=== PATIENT | female | born 1960 | race American Indian/Alaskan Native ===

== ENCOUNTER 2018-10-16 10:20 | Emergency (ER) | payer OTHER ==
[2018-10-16 10:50] LABS: Basophils # (Auto) 0.1 K/mm3 (0.0-0.1); Basophils % (Auto) 1.6 % (0.0-1.8); Eosinophils # (Auto) 0.1 K/mm3 (0.0-0.4); Eosinophils % (Auto) 1.8 % (0.0-4.3); Hematocrit 40.2 % (30.3-42.9); Hemoglobin 13.8 gm/dl (10.1-14.3); Lymphocytes # (Auto) 3.1 K/mm3 (1.2-5.4); Lymphocytes % (Auto) 39.9 % (13.4-35.0); Mean Corpuscular HGB Conc 34 % (30-34); Mean Corpuscular Volume 92 fl (79-97); Monocytes # (Auto) 0.6 K/mm3 (0.0-0.8); Monocytes % (Auto) 8.4 % (0.0-7.3); Platelet Count 268 K/mm3 (140-440); Red Blood Count 4.36 M/mm3 (3.65-5.03); Red Cell Distribution Width 13.9 % (13.2-15.2)
[2018-10-16 11:11] LABS: Calcium 9.6 mg/dL (8.4-10.2)
[2018-10-16 13:25] LABS: Amphetamine Screen,Urine PRESUMPTIVE NEGATIVE; Benzodiazepines Screen,Urine PRESUMPTIVE NEGATIVE; Cannabinoid Screen,Urine PRESUMPTIVE NEGATIVE; Cocaine Screen,Urine PRESUMPTIVE NEGATIVE; Methadone Screen,Urine PRESUMPTIVE NEGATIVE; Opiate Screen,Urine PRESUMPTIVE NEGATIVE
[2018-10-16 13:26] LABS: Bacteria,Urine 1+ /HPF (Negative); Mucus,Urine FEW /HPF
[2018-10-16 13:27] LABS: Bilirubin,Urine NEG (Negative); Blood,Urine NEG (Negative); Color,Urine Yellow (Yellow); Protein,Urine <15 mg/dL mg/dL (Negative)
--- NOTE | 2018-10-16 14:50 | Emergency Department Report ---
ED Psych HPI - General Chief Complaint: Psych Stated Complaint: SI/CHEST PAIN/DEPRESSION/ANXIETY Time Seen by Provider: 10/16/18 14:15 Source: patient Mode of arrival: Ambulatory - History of Present Illness Initial Comments: 58-year-old female with history of anxiety, depression, schizophrenia presents to ED with complaint of anxiety, depression, suicidal ideation. Patient stated to the upper medications. Reports plans to jump out of a window or in front of a car. Denies hallucinations. MD Complaint: suicidal ideation -: unknown Associated Psychiatric Symptoms: depression, suicidal ideation History of same: Yes Quality: constant Improves With: none Worsens With: none Context: not taking psychiatric Associated Symptoms: other (body aches) Treatments Prior to Arrival: none If Self Harm: has plan - Related Data Home Medications Medication Instructions Recorded Confirmed Last Taken FLUoxetine [PROzac] 40 mg PO QDAY 10/16/18 10/17/18 08/24/18 QUEtiapine [SEROquel] 300 mg PO BID 10/16/18 10/17/18 09/21/18 levETIRAcetam [Keppra] 1,000 mg PO BID 10/16/18 10/17/18 08/16/18 Allergies Allergy/AdvReac Type Severity Reaction Status Date / Time No Known Allergies Allergy Unverified 10/16/18 10:25 ED Review of Systems ROS: Stated complaint: SI/CHEST PAIN/DEPRESSION/ANXIETY Other details as noted in HPI Comment: All other systems reviewed and negative Constitutional: denies: chills, fever Musculoskeletal: myalgia Psychiatric: depression, suicidal thoughts ED Past Medical Hx - Past Medical History Previous Medical History?: Yes Hx Psychiatric Treatment: Yes - Surgical History Past Surgical History?: Yes Additional Surgical History: Tubal ligation - Social History Smoking Status: Never Smoker Substance Use Type: None - Medications Home Medications: Home Medications Medication Instructions Recorded Confirmed Last Taken Type FLUoxetine [PROzac] 40 mg PO QDAY 10/16/18 10/17/18 08/24/18 History QUEtiapine [SEROquel] 300 mg PO BID 10/16/18 10/17/18 09/21/18 History levETIRAcetam [Keppra] 1,000 mg PO BID 10/16/18 10/17/18 08/16/18 History ED Physical Exam - General Limitations: No Limitations General appearance: alert, in no apparent distress - Head Head exam: Present: atraumatic, normocephalic - Eye Eye exam: Present: normal appearance - ENT ENT exam: Present: mucous membranes moist - Neck Neck exam: Present: normal inspection - Respiratory Respiratory exam: Present: normal lung sounds bilaterally. Absent: respiratory distress - Cardiovascular Cardiovascular Exam: Present: regular rate, normal rhythm - GI/Abdominal GI/Abdominal exam: Absent: distended - Extremities Exam Extremities exam: Present: normal inspection - Neurological Exam Neurological exam: Present: alert, oriented X3 - Psychiatric Psychiatric exam: Present: normal affect, normal mood - Skin Skin exam: Present: warm, dry, intact, normal color ED Course Vital Signs 10/16/18 10/16/18 10/16/18 10:25 16:24 20:55 Temperature 98.5 F 98.0 F 98.5 F Pulse Rate 90 82 81 Respiratory 19 18 18 Rate Blood Pressure 141/74 130/51 135/87 [Left] O2 Sat by Pulse 97 100 96 Oximetry 10/16/18 10/17/18 10/17/18 22:00 04:30 07:00 Temperature 98.4 F 98.6 F Pulse Rate 78 80 Respiratory 16 17 18 Rate Blood Pressure 103/79 144/87 [Left] O2 Sat by Pulse 99 100 96 Oximetry ED Medical Decision Making - Lab Data Result diagrams: 10/16/18 10:34 10/16/18 10:34 - Medical Decision Making 58-year-old female presents to ED with suicidal ideations. Patient placed on 1013. Labs are unremarkable. Patient is medically clear for mental health evaluation. Will dispo per psych - Differential Diagnosis anxiety, depression, SI Critical care attestation.: If time is entered above; I have spent that time in minutes in the direct care of this critically ill patient, excluding procedure time. ED Disposition Clinical Impression: Depression, Suicidal ideation Disposition: [id number]/[facility]-65 PSY HOSP/PSY UNIT Is pt being admited?: No Condition: Stable Referrals: KEIRY JUARES MD [Primary Care Provider] - 3-5 Days
[2018-10-16] MEDS ORDERED: HALDOL IM ONE (22:07)
[2018-10-17] MEDS ORDERED: GEODON IM ONE ×2 (02:49→09:14)
[2018-10-17] MEDS ORDERED: WATER FOR INJ Sterile (PF) 10 ML ONE ×2 (02:49→02:50)
[2018-10-17] MEDS ORDERED: GEODON IM PRN (02:51)
[2018-10-17] MEDS: KEPPRA PO SCH ×2 (10:53→22:13)
--- NOTE | 2018-10-17 14:49 | Consultation ---
History of Present Illness - Reason for Consult Consult date: 10/17/18 Reason for consult: Initial Psychiatric Evaluation - Chief Complaint Chief complaint: " I have schizophrenia and bipolar. I need my medication." - History of Present Psychiatric Illness Patient is a 58-year-old female that presents to the emergency room with suicidal ideations, depression, psychosis, and anxiety. She has a PPHx of generalized anxiety disorder, major depressive disorder, and schizoaffective disorder, bipolar type. Today the patient is calm and cooperative during the assessment. Patient verbalizes that she is here from [place]. She came to [place] on a bus to find her daughter approximately 1 month ago. She reports paranoid delusions and auditory hallucinations " I want to . I don't want to live." Patient thought content is impoverished. Answers to questions are conflicting. She states that she was last compliant with medication 3 days ago. Endorses suicidal ideation and psychosis. Current Psychiatric Medications: Seroquel 300mg po BID, Prozac 40mg po QAM, and Klonopin 1mg po BID Past Psychiatric History: schizoaffective disorder, bipolar type (2005) MDD ( 2005) MALINDA ( 2005); more than 10 inpatient psychiatric hospitalizations; no outpatient psychiatrist; 3 previous suicide attempt via overdose. Last attempt 3 months ago. Past Medication Trials: " I've only taken these medications" History of Trauma/Abuse: Patient denies trauma. Patient denies sexual, physical, and mental abuse. History of Drug/Alcohol Abuse: Patient denies. UDS negative. Social History: 9th grade - highest level of education ;homeless; Social Security- $ 740 monthly income; limited support system; no pending legal issues. Family History of Psychiatric Illness/Substance Abuse: Mother- " the same thing as me" son- " the same thing as me" Medications and Allergies Allergies Allergy/AdvReac Type Severity Reaction Status Date / Time No Known Allergies Allergy Unverified 10/16/18 10:25 Home Medications Medication Instructions Recorded Confirmed Last Taken Type FLUoxetine [PROzac] 40 mg PO QDAY 10/16/18 10/17/18 08/24/18 History QUEtiapine [SEROquel] 300 mg PO BID 10/16/18 10/17/18 09/21/18 History levETIRAcetam [Keppra] 1,000 mg PO BID 08/10/17/18 08/16/18 History clonazePAM [Klonopin] 1 mg PO BID 10/17/18 10/17/18 Unknown History Active Meds: Active Medications Levetiracetam (Keppra) 1,000 mg PO BID ENRIQUE Last Admin: 10/17/18 10:53 Dose: 1,000 mg Documented by: Mental Status Exam - Vital signs Last Vital Signs Temp 98.6 F 10/17/18 07:00 Pulse 80 10/17/18 07:00 Resp 18 10/17/18 07:00 BP 144/87 10/17/18 07:00 Pulse Ox 96 10/17/18 07:00 - Exam Narrative exam: Mental Status Exam Appearance: calm, cooperative Behavior: regular eye contact Speech: regular rate and tone Mood: "depressed and anxious " Affect: congruent to mood Thought Process: circumstantial Thought Content: + SI's and AH's, delusions; denies VH's and HI's Motor Activity: ambulatory Cognition: A/O x 2 Insight: poor Judgment: poor Results Result Diagrams: 10/16/18 10:34 10/16/18 10:34 All other labs normal. Assessment and Plan Assessment and plan: Impression: PPHX MDD, recurrent, severe and schizoaffective disorder, bipolar type . Today the patient is calm and cooperative during the assessment. She endorses SI's, AH's, and delusions. UDS negative. Recommendations/Plan: 1. Continue 1013. 2. Start Prozac 20mg po QAM depression/anxiety, Seroquel 100mg po BID mood/psychosis, Vistaril 25mg po BID PRN anxiety. Discussed possible side effects such as metabolic side effects due to Seroquel, possible increase suicidal ideations in reference to Prozac, and anticholinergic side effects of Vistaril. 3. Will attempt to gain collateral and reassess in 24 hours. 4. Recommend [facility] protocol for possible benzodiazepine withdrawal. Disposition: The patient was referred to inpatient psychiatric services. Will staff with Dr. Sam Calderon.
[2018-10-17] MEDS ORDERED: VISTARIL PO PRN (15:24)
[2018-10-17] MEDS: VISTARIL PO SCH (22:14)
[2018-10-18] MEDS: KEPPRA PO SCH ×2 (10:37→22:34)
[2018-10-18] MEDS: PROzac PO SCH (10:37)
[2018-10-18] MEDS: VISTARIL PO SCH ×2 (10:38→22:34)
--- NOTE | 2018-10-18 12:22 | Progress Note ---
Subjective - Reason for Consult Consult date: 10/18/18 Reason for consult: Psychiatry Follow-up - Chief Complaint Chief complaint: "I am feeling bad" 58-year-old female who presented to for mental health evaluation. Per the notes, the patient endorsed SI's along with presenting with psychosis. Today the patient was cooperative, but somewhat disorganized during the assessment. Her answers to some questions were not logical. She was asked about her mental health, she answer the question reference her abdomen. She was adamant about telling me the provider about her medication without me asking question about them. She denies SI/HI's and VH's. She would not confirm or deny AH's. No indications of side effects from her medications. Mental Status Exam - Vital signs Last Vital Signs Temp 98 F 10/18/18 09:44 Pulse 83 10/18/18 09:44 Resp 18 10/18/18 09:44 BP 168/87 10/18/18 09:44 Pulse Ox 96 10/18/18 09:44 - Exam Narrative exam: MSE: Appearance: cooperative Behavior: regular eye contact Speech: regular rate and tone Mood: "not good" Affect: flat Thought Process: somewhat disorganized Thought Content: denies SI/HI's and VH's Motor Activity: sitting up in bed Cognition: A/O x 3 Insight: poor Judgment: variable Assessment and Plan Impression: Unspecified Mood DO with psy features. Today the patient was cooperative, but somewhat disorganized during the assessment. DDx: MDD with psychosis, SCAD, Bipolar DO Recommendations/Plan: Continue 1013, Seroquel 100 mg PO BID for mood/psychosis, Prozac 20 mg PO daily for depression, and Vistaril 25 mg PO BID for anxiety. Discussed possible metabolic side effects of Seroquel with the patient, she verbalized understanding. Discussed possible sucidality/medication induced leah with the patient reference Prozac, she verbalized understanding. Dispo: The patient was accepted at [facility] for inpatient psy services. Staffed with Dr. Sam Calderon.
[2018-10-18] MEDS ORDERED: IBUPROFEN PO ONE (23:29)
[2018-10-18] MEDS ORDERED: HABITROL TD ONE (23:29)
[2018-10-19 06:15] LABS: Chol/HDL Ratio 3.54 %
[2018-10-19 08:01] VITALS: BP 125/82
[2018-10-19] MEDS ORDERED: TYLENOL ONE (08:22)
[2018-10-19] MEDS ORDERED: TYLENOL PO ONE (08:32)
[2018-10-19] MEDS ORDERED: IBUPROFEN PO ONE (08:33)
--- NOTE | 2018-10-19 09:56 | Progress Note ---
Subjective - Reason for Consult Consult date: 10/19/18 Reason for consult: Psychiatry Follow-up - Chief Complaint Chief complaint: " am much better today" 58-year-old female who presented to for mental health evaluation. Per the notes, the patient endorsed SI's along with presenting with psychosis. Today the patient was calm and cooperative during the assessment. She was more organized with her thoughts today. She answered questions logically. She stated that she will follow up with outpatient psy services. She denies SI/HI's and AVH's. She denies any side effects from her medications. Mental Status Exam - Vital signs Last Vital Signs Temp 98.1 F 10/19/18 07:42 Pulse 77 10/19/18 07:42 Resp 16 10/19/18 08:36 BP 125/82 10/19/18 07:42 Pulse Ox 97 10/19/18 08:24 - Exam Narrative exam: MSE: Appearance: calm, cooperative Behavior: regular eye contact Speech: regular rate and tone Mood: "okay" Affect: congruent to mood Thought Process: more organized Thought Content: denies SI/HI's and AVH's Motor Activity: sitting up in bed Cognition: A/O x 3 Insight: fair Judgment: fair Assessment and Plan Impression: Unspecified Mood DO with psy features. Today the patient was cooperative, but somewhat disorganized during the assessment. Th epatient's psychosis has resolved. DDx: MDD with psychosis, SCAD, Bipolar DO Recommendations/Plan: Rescind 1013. Continue Seroquel 100 mg PO BID for mood/psychosis, Prozac 20 mg PO daily for depression, and Vistaril 25 mg PO BID for anxiety. Discussed possible metabolic side effects of Seroquel with the patient, she verbalized understanding. Discussed possible sucidality/medication induced leah with the patient reference Prozac, she verbalized understanding. Dispo: The patient can follow up with [facility] for outpatient psy servi jolynn. Staffed with Dr. Sam Calderon.
[2018-10-19] MEDS: KEPPRA PO SCH (11:06)
[2018-10-19] MEDS: PROzac PO SCH (11:08)
[2018-10-19] MEDS: VISTARIL PO SCH (11:12)
== END 2018-10-19 13:57 | disposition home or self-care (01) ==
LOC: ED 10:20 → EEVIPCON 10:20 → ED 10-19 13:57
DX: F32.9 Major depressive disorder, single episode, unspecified (principal); Z98.51 Tubal ligation status
CPT/HCPCS: 36415; 80048; 80061; 80307; 81001; 83036; 85025; 96372; 99284; J1630; J3486; 80320; G0480; Q0177